=== PATIENT | male | born 1960 | race Caucasian/White ===

== ENCOUNTER 2019-02-28 10:00 | Emergency (ER) | payer OTHER, SELFPAY ==
[2019-02-28 10:03] VITALS: BP 139/75; PULSE 68; RESP 18; TEMP 36.3; O2SAT 100
--- NOTE | 2019-02-28 10:46 | W.ED.GENAD ---
Discharge Plan Disposition Patient Disposition: HOME Condition: Fair Discharge Details Chief Complaint: Laceration Clinical Impression: Laceration of scalp Primary Care Provider: Jeri Figueroa ED Provider: Mable Colmenares Home Meds and New Rx's Prescriptions: Continued multivitamin [Once Daily] 1 EACH tablet 1 tab PO DAILY RF: 0 naproxen sodium 220 MG tablet 2 tab PO BID RF: 0 aspirin 81 MG tablet,chewable 81 mg PO DAILY RF: 0 albuterol sulfate [Proventil HFA] 6.7 GM HFA aerosol inhaler 2 puff Inhalation Q4H PRN Qty: 1 RF: 3 Discharge Instructions Instructions: Laceration (ED), Staple Care (ED) Additional Instructions: Keep wound clean and dry. Monitor area for signs of infection including redness, warmth, drainage, increased pain, fever/chills. If these or other new/worsening symptoms arise please seek care urgently once again. Please return in 10 days for staple removal. You may wash with running water and soap but do not soak or submerge as this will increase her risk of infection. Referrals: Jeri Figueroa, ENTRY LEVEL SOFTWARE ENGINEER [Primary Care Provider] - Medical Decision Making Patient is a 58-year-old male presents today with chief complaint of scalp laceration. 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 Reports that he had bent over to pick something up off the floor and stood up into [employer]'s. Tetanus is 10 years, will update this today. He denies any headache or loss of consciousness. Suffered on 8 this laceration. Otherwise, exam is benign. He has a 3 cm curvilinear laceration on the top of his head. This has been cleansed by nursing staff. Patient I discussed treatment options. Plan to anesthetize, clean up further and close raudel. Patient discussed risk/benefits as well as expected procedural steps, he voiced understanding and wishes to proceed Procedure preformed using standard sterile technique as above. Patietn tolerated procedure well. Discussed wound care in depth. Discussed sxs of infection and when to seek care urgently once again. He will return in 10 days for staple removal. All questions and concerns were addressed, he is in agreement with this plan. HPI General Mode of arrival: ambulatory. Date/Time Provider Initiated Documentation: 02/28/19 10:04. Limitations to Documentation: no limitations. Information obtained by: patient and RN notes reviewed. History of Present Illness 58 year old M presents to the emergency department with the chief complaint of scalp laceration, described as mild, with intensity rated at 3. Quality is described as burning, and is localized to the head. Patient reports no radiation. Patient started experiencing this minute(s) and it has been constant. No relieving factors improve symptom(s), No exacerbating factors reported . Patient notes no other symptoms.; denies confusion, headaches and nausea/vomiting. Patient did receive the following treatments prior to arrival, none Related Data Home Medications Medication Instructions Recorded Confirmed multivitamin [Once Daily] 1 tab PO DAILY 12/22/12 02/28/19 naproxen sodium 2 tab PO BID 12/22/12 02/28/19 albuterol sulfate [Proventil HFA] 2 puff INHALATION Q4H PRN #1 puff 04/25/17 02/28/19 aspirin 81 mg PO DAILY tab-cap 04/25/17 02/28/19 Allergies Allergy/AdvReac Type Severity Reaction Status Date / Time environmental Allergy Intermediate rhinitis, Uncoded 02/28/19 10:23 itchy eyes General Stated Complaint: Laceration ANA: 4 Review of Systems Constitutional Reports as per HPI, Denies chills, Denies fatigue, Denies fever(s), Denies headache(s) and Denies poor appetite ENT Denies headache(s) Cardiovascular Denies chest pain Respiratory Denies cough Gastrointestinal Denies nausea and Denies vomiting Musculoskeletal Reports as per HPI Integumentary/Breasts Reports as per HPI Neurologic Reports as per HPI, Denies headache(s), Denies sensory deficit and Denies paresthesias Endocrine Denies fatigue [facility] Medical History Left upper body smaller than right, unknown etiology Pectus excavatum Surgical History Microdiscectomy, 1987, lumbar (L4-L5) Multiple joint injections (knees & shoulders), Abdon R Shoulder, rotator cuff repair, date? (12/28/00) Family History Mother Personal history of malignant neoplasm Father Personal history of malignant neoplasm Heart disease Mental disorder Brother Diabetes Mental disorder Social History Smoking/Tobacco Use Status: Former Tobacco Use Alcohol Intake: never Drug use: Never Do you feel safe in your relationship?: Yes Exam Const General: cooperative, healthy appearing, comfortable, no acute distress and well developed Nutritional Appearance: average body habitus and well nourished Orientation: alert and awake [facility] Head: no palpable skull fracture, no Soto's sign, no contusions, no hematomas, laceration (3cm curvilinear laceration top of had), no occipital foramen tenderness, no palpable skull fracture, no raccoon eyes and scalp tenderness Resp Effort & Inspection: normal respiratory effort, able to speak in complete sentences and no respiratory distress Cardio Rate: regular rate Rhythm: regular rhythm Skin Trauma: laceration (as above, not actively bleeding, galea intact) Neuro General: alert and awake Cognition: normal cognition Speech: speech normal Gait: normal gait Sensory Exam: no sensory deficits noted Psych Appearance: grossly normal and well kempt Mental Status: mental status grossly normal Speech and Movement: speech and movement normal Course Vital Signs Temperature 36.3 C L 02/28/19 10:03 Pulse 68 02/28/19 10:03 Respiratory Rate 18 02/28/19 10:03 Blood Pressure 139/75 02/28/19 10:03 Pulse Oximetry 100 02/28/19 10:03 Temperature 36.3 C L 02/28/19 10:03 Temperature Source Skin 02/28/19 10:03 Pulse 68 02/28/19 10:03 Respiratory Rate 18 02/28/19 10:03 Respiratory Effort 02/28/19 10:25 Blood Pressure 139/75 02/28/19 10:03 Pulse Oximetry 100 02/28/19 10:03 Oxygen Delivery Method Room Air 02/28/19 10:03 Oxygen Flow Rate 0 02/28/19 10:03 Pain Level 5 02/28/19 10:20 Procedures Laceration Laceration 1: Site: scalp Side (If applicable): left Size (cm): 3 Description: stellate Depth: simple, single layer Local Anesthetic: Lidocaine 1% and with Epi Amount of anesthesia used (mL): 4 Pre-repair: wound explored, irrigated extensively and deep structures intact Skin layer closed with: other (raudel) Number of sutures: 3
--- NOTE | 2019-02-28 10:52 | ED.GENADUL_ITS ---
Discharge Plan Disposition Patient Disposition: HOME Condition: Fair Discharge Details Chief Complaint: Laceration Clinical Impression: Laceration of scalp Primary Care Provider: Jeri Figueroa ED Provider: Mable Colmenares Home Meds and New Rx's Prescriptions: Continued multivitamin [Once Daily] 1 EACH tablet 1 tab PO DAILY RF: 0 naproxen sodium 220 MG tablet 2 tab PO BID RF: 0 aspirin 81 MG tablet,chewable 81 mg PO DAILY RF: 0 albuterol sulfate [Proventil HFA] 6.7 GM HFA aerosol inhaler 2 puff Inhalation Q4H PRN Qty: 1 RF: 3 Discharge Instructions Instructions: Laceration (ED), Staple Care (ED) Additional Instructions: Keep wound clean and dry. Monitor area for signs of infection including redness, warmth, drainage, increased pain, fever/chills. If these or other new/worsening symptoms arise please seek care urgently once again. Please r eturn in 10 days for staple removal. You may wash with running water and soap but do not soak or submerge as this will increase her risk of infection. Referrals: Jeri Figueroa, HOUSEHOLD APPLIANCES SERVICE TECHNICIAN [Primary Care Provider] - Medical Decision Making Patient is a 58-year-old male presents today with chief complaint of scalp laceration. 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 Reports that he had bent over to pick something up off the floor and stood up into [employer]. Tetanus is 10 years, will update this today. He denies any headache or loss of consciousness. Suffered on 8 this laceration. Otherwise, exam is benign. He has a 3 cm curvilinear laceration on the top of his head. This has been cleansed by nursing staff. Patient I discussed treatment options. Plan to anesthetize, clean up further and close raudel. Patient discussed risk/benefits as well as expected procedural steps, he voiced understanding and wishes to proceed Procedure preformed using standard sterile technique as above. Patietn tolerated procedure well. Discussed wound care in depth. Discussed sxs of infection and when to seek care urgently once again. He will return in 10 days for staple removal. All questions and concerns were addressed, he is in agreement with this plan. HPI General Mode of arrival: ambulatory . Date/Time Provider Initiated Documentation: 02/28/19 10:04 . Limitations to Documentation: no limitations . Information obtained by: patient and RN notes reviewed . History of Present Illness 58 year old M presents to the emergency department with the chief complaint of scalp laceration, described as mild, with intensity rated at 3. Quality is described as burning, and is localized to the head. Patient reports no radiation. Patient started experiencing this minute(s) and it has been constant. No relieving factors improve symptom(s), No exacerbating factors reported . Patient notes no other symptoms.; denies confusion, headaches and nausea/vomiting. Patient did receive the following treatments prior to arrival, none Related Data Home Medications Medication Instructions Recorded Confirmed multivitamin [Once Daily] 1 tab PO DAILY 12/22/12 02/28/19 naproxen sodium 2 tab PO BID 12/22/12 02/28/19 albuterol sulfate [Proventil HFA] 2 puff INHALATION Q4H PRN #1 puff 04/25/17 02/28/19 aspirin 81 mg PO DAILY tab-cap 04/25/17 02/28/19 Allergies Allergy/AdvReac Type Severity Reaction Status Date / Time environmental Allergy Intermediate rhinitis, Uncoded 02/28/19 10:23 itchy eyes General Stated Complaint: Laceration ANA: 4 Review of Systems Constitutional Reports as per HPI, Denies chills, Denies fatigue, Denies fever(s), Denies headache(s) and Denies poor appetite ENT Denies headache(s) Cardiovascular Denies chest pain Respiratory Denies cough Gastrointestinal Denies nausea and Denies vomiting Musculoskeletal Reports as per HPI Integumentary/Breasts Reports as per HPI Neurologic Reports as per HPI, Denies headache(s), Denies sensory deficit and Denies paresthesias Endocrine Denies fatigue [facility] Medical History Left upper body smaller than right, unknown etiology Pectus excavatum Surgical History Microdiscectomy, 1987, lumbar (L4-L5) Multiple joint injections (knees & shoulders), Abdon R Shoulder, rotator cuff repair, date? (12/28/00) Family History Mother Personal history of malignant neoplasm Father Personal history of malignant neoplasm Heart disease Mental disorder Brother Diabetes Mental disorder Social History (Reviewed 02/28/19 @ 10:50 by FLORES Majano Smoking/Tobacco Use Status: Former Tobacco Use Alcohol Intake: never Drug use: Never Do you feel safe in your relationship?: Yes Exam Const General: cooperative, healthy appearing, comfortable, no acute distress and well developed Nutritional Appearance: average body habitus and well nourished Orientation: alert and awake [facility] Head: no palpable skull fracture, no Soto's sign, no contusions, no hematomas, laceration (3cm curvilinear laceration top of had), no occipital foramen tenderness, no palpable skull fracture, no raccoon eyes and scalp tenderness Resp Effort & Inspection: normal respiratory effort, able to speak in complete sentences and no respiratory distress Cardio Rate: regular rate Rhythm: regular rhythm Skin Trauma: laceration (as above, not actively bleeding, galea intact) Neuro General: alert and awake Cognition: normal cognition Speech: speech normal Gait: normal gait Sensory Exam: no sensory deficits noted Psych Appearance: grossly normal and well kempt Mental Status: mental status grossly normal Speech and Movement: speech and movement normal Course Vital Signs Temperature 36.3 C L 02/28/19 10:03 Pulse 68 02/28/19 10:03 Respiratory Rate 18 02/28/19 10:03 Blood Pressure 139/75 02/28/19 10:03 Pulse Oximetry 100 02/28/19 10:03 Temperature 36.3 C L 02/28/19 10:03 Temperature Source Skin 02/28/19 10:03 Pulse 68 02/28/19 10:03 Respiratory Rate 18 02/28/19 10:03 Respiratory Effort 02/28/19 10:25 Blood Pressure 139/75 02/28/19 10:03 Pulse Oximetry 100 02/28/19 10:03 Oxygen Delivery Method Room Air 02/28/19 10:03 Oxygen Flow Rate 0 02/28/19 10:03 Pain Level 5 02/28/19 10:20 Procedures Laceration Laceration 1: Site: scalp Side (If applicable): left Size (cm): 3 Description: stellate Depth: simple, single layer Local Anesthetic: Lidocaine 1% and with Epi Amount of anesthesia used (mL): 4 Pre-repair: wound explored, irrigated extensively and deep structures intact Skin layer closed with: other (raudel) Number of sutures: 3
== END 2019-02-28 11:35 | disposition home or self-care (01) ==
PROVIDERS: Emergency Provider Physician Assistant; PCP Nurse Practitioner
DX: S01.01XA Laceration without foreign body of scalp, initial encounter (principal); W45.8XXA Other foreign body or object entering through skin, initial encounter
CPT/HCPCS: 12002; 90471

== ENCOUNTER 2019-03-12 09:18 | Emergency (ER) | payer SELFPAY ==
[2019-03-12 09:24] VITALS: BP 124/70; PULSE 82; RESP 14; TEMP 36.7; O2SAT 97
--- NOTE | 2019-03-12 09:48 | W.ED.GENAD ---
Discharge Plan Disposition Patient Disposition: HOME Condition: Stable Discharge Details Chief Complaint: SutureRem Clinical Impression: Encounter for removal of raudel Primary Care Provider: Jeri Figueroa ED Provider: Delores Loya Home Meds and New Rx's Prescriptions: Continued multivitamin [Once Daily] 1 EACH tablet 1 tab PO DAILY RF: 0 naproxen sodium 220 MG tablet 2 tab PO BID RF: 0 aspirin 81 MG tablet,chewable 81 mg PO DAILY RF: 0 albuterol sulfate [Proventil HFA] 6.7 GM HFA aerosol inhaler 2 puff Inhalation Q4H PRN Qty: 1 RF: 3 Discharge Instructions Additional Instructions: Please return immediately to the emergency department if you develop any new or worsening symptoms, including but not limited to fever, drainage or redness around the laceration, vomiting, or if you become otherwise concerned. It is extremely important that you call as soon as possible to make an appointment to be seen in follow-up this visit by your primary care doctor. Referrals: Jeri Figueroa, DANITA [Primary Care Provider] - Discharge Data Discharge Date/Time-TO BE ENTERED AT DEPARTURE: 03/12/19 10:31 Medical Decision Making Dion is a 58-year-old man with a history of asthma who presented to the emergency department for staple removal after being seen here 12 days for scalp laceration sustained from taxidermied animal specimen, no complaints. On exam patient is very well and nontoxic appearing. Laceration appears to be healing very well, [address] [place] removed without complication. No concern for acute emergent life-threatening process at this time. I had a lengthy discussion with patient regarding return to emergency department precautions, importance of outpatient follow-up, home care. Patient verbalized understanding the plan and was amenable. All questions were answered. Medical Records Medical records reviewed: Yes I reviewed the patient's medical records. HPI General Mode of arrival: ambulatory. Date/Time Provider Initiated Documentation: 03/12/19 09:48. Limitations to Documentation: no limitations. Information obtained by: patient, RN notes reviewed and old records reviewed. HPI Narrative: Steven Ledbetter is a 58-year-old man with history of asthma presenting to the emergency room department for staple removal after being seen here 02/28 for laceration to his scalp. Patient reports that since laceration was repaired with raudel, he has had no further issues. He denies any pain, redness, drainage, fevers, vomiting. Feels very well and in his usual state of health. He reports that he is here for staple removal only. Related Data Home Medications Medication Instructions Recorded Confirmed multivitamin [Once Daily] 1 tab PO DAILY 12/22/12 02/28/19 naproxen sodium 2 tab PO BID 12/22/12 02/28/19 albuterol sulfate [Proventil HFA] 2 puff INHALATION Q4H PRN #1 puff 04/25/17 02/28/19 aspirin 81 mg PO DAILY tab-cap 04/25/17 02/28/19 Allergies Allergy/AdvReac Type Severity Reaction Status Date / Time environmental Allergy Intermediate rhinitis, Uncoded 02/28/19 10:23 itchy eyes General Stated Complaint: SutureRem ANA: 4 Review of Systems Review of Systems Constitutional: denies fevers Eyes: denies eye pain ENT: denies facial pain, dental pain, sore throat Cardiovascular: denies chest pain Respiratory: denies SOB, cough GI: denies abdominal pain, vomiting : denies flank pain MSK: denies back pain, neck pain, arthralgias, myalgias Neuro: denies headaches PFSH Medical History Left upper body smaller than right, unknown etiology Pectus excavatum Family History Mother Personal history of malignant neoplasm Father Personal history of malignant neoplasm Heart disease Mental disorder Brother Diabetes Mental disorder Social History Smoking/Tobacco Use Status: Former Tobacco Use Alcohol Intake: never Drug use: Never Do you feel safe in your relationship?: Yes Exam Narrative Exam Narrative: Constitutional: well and [id number], pleasant, conversing normally HENT: head atraumatic/normocephalic, [address] over healing laceration left parietal scalp near midline, no drainage, no redness, no dehiscence, mucous membranes moist Eyes: conjunctiva normal, sclera normal, pupils 3mm b/l Neck: no stridor, normal ROM, trachea midline Resp: normal work of breathing Cardio: normal rate, normal rhythm Skin: warm, dry, normal color, no rash Neuro: alert, not altered, grossly non-focal, normal tone Ext: Moving all extremities equally Psych: normal mood, normal affect, normal behavior Course Vital Signs Temperature 36.7 C 03/12/19 09:24 Pulse Oximetry 97 03/12/19 09:24 Temperature 36.7 C 03/12/19 09:24 Temperature Source Temporal Artery Scan 03/12/19 09:24 Respiratory Effort Non-Labored 03/12/19 09:26 Blood Pressure Position Sitting 03/12/19 09:24 Pulse Oximetry 97 03/12/19 09:24 Oxygen Delivery Method Room Air 03/12/19 09:24 Oxygen Flow Rate 0 03/12/19 09:24
--- NOTE | 2019-03-12 10:13 | ED.GENADUL_ITS ---
Discharge Plan Disposition Patient Disposition: HOME Condition: Stable Discharge Details Chief Complaint: SutureRem Clinical Impression: Encounter for removal of raudel Primary Care Provider: Jeri Figueroa ED Provider: Delores Loya Home Meds and New Rx's Prescriptions: Continued multivitamin [Once Daily] 1 EACH tablet 1 tab PO DAILY RF: 0 naproxen sodium 220 MG tablet 2 tab PO BID RF: 0 aspirin 81 MG tablet,chewable 81 mg PO DAILY RF: 0 albuterol sulfate [Proventil HFA] 6.7 GM HFA aerosol inhaler 2 puff Inhalation Q4H PRN Qty: 1 RF: 3 Discharge Instructions Additional Instructions: Please return immediately to the emergency department if you develop any new or worsening symptoms, including but not limited to fever, drainage or redness around the laceration, vomiting, or if you become otherwise concerned. It is extremely important that you call as soon as possible to make an appointment to be seen in follow-up this visit by your primary care doctor. Referrals: Jeri Figueroa, DANITA [Primary Care Provider] - Discharge Data Discharge Date/Time-TO BE ENTERED AT DEPARTURE: 03/12/19 10:31 Medical Decision Making Dion is a 58-year-old man with a history of asthma who presented to the emergency department for staple removal after being seen here 12 days for scalp laceration sustained from taxidermied animal specimen, no complaints. On exam patient is very well and nontoxic appearing. Laceration appears to be healing very well, [address] [place] removed without complication. No concern for acute emergent life-threatening process at this time. I had a lengthy discussion with patient regarding return to emergency department precautions, importance of outpatient follow-up, home care. Patient verbalized understanding the plan and was amenable. All questions were answered. Medical Records Medical records reviewed: Yes I reviewed the patient's medical records. HPI General Mode of arrival: ambulatory . Date/Time Provider Initiated Documentation: 03/12/19 09:48 . Limitations to Documentation: no limitations . Information obtained by: patient, RN notes reviewed and old records reviewed . HPI Narrative: Steven Ledbetter is a 58-year-old man with history of asthma presenting to the emergency room department for staple removal after being seen here 02/28 for laceration to his scalp. Patient reports that since laceration was repaired with raudel, he has had no further issues. He denies any pain, redness, drainage, fevers, vomiting. Feels very well and in his usual state of health. He reports that he is here for staple removal only. Related Data Home Medications Medication Instructions Recorded Confirmed multivitamin [Once Daily] 1 tab PO DAILY 12/22/12 02/28/19 naproxen sodium 2 tab PO BID 12/22/12 02/28/19 albuterol sulfate [Proventil HFA] 2 puff INHALATION Q4H PRN #1 puff 04/25/17 02/28/19 aspirin 81 mg PO DAILY tab-cap 04/25/17 02/28/19 Allergies Allergy/AdvReac Type Severity Reaction Status Date / Time environmental Allergy Intermediate rhinitis, Uncoded 02/28/19 10:23 itchy eyes General Stated Complaint: SutureRem ANA: 4 Review of Systems Review of Systems Constitutional: denies fevers Eyes: denies eye pain ENT: denies facial pain, dental pain, sore throat Cardiovascular: denies chest pain Respiratory: denies SOB, cough GI: denies abdominal pain, vomiting : denies flank pain MSK: denies back pain, neck pain, arthralgias, myalgias Neuro: denies headaches PFSH Medical History Left upper body smaller than right, unknown etiology Pectus excavatum Family History Mother Personal history of malignant neoplasm Father Personal history of malignant neoplasm Heart disease Mental disorder Brother Diabetes Mental disorder Social History Smoking/Tobacco Use Status: Former Tobacco Use Alcohol Intake: never Drug use: Never Do you feel safe in your relationship?: Yes Exam Narrative Exam Narrative: Constitutional: well and [id number], pleasant, conversing normally HENT: head atraumatic/normocephalic, [address] over healing laceration left parietal scalp near midline, no drainage, no redness, no dehiscence, mucous membranes moist Eyes: conjunctiva normal, sclera normal, pupils 3mm b/l Neck: no stridor, normal ROM, trachea midline Resp: normal work of breathing Cardio: normal rate, normal rhythm Skin: warm, dry, normal color, no rash Neuro: alert, not altered, grossly non-focal, normal tone Ext: Moving all extremities equally Psych: normal mood, normal affect, normal behavior Course Vital Signs Temperature 36.7 C 03/12/19 09:24 Pulse Oximetry 97 03/12/19 09:24 Temperature 36.7 C 03/12/19 09:24 Temperature Source Temporal Artery Scan 03/12/19 09:24 Respiratory Effort Non-Labored 03/12/19 09:26 Blood Pressure Position Sitting 03/12/19 09:24 Pulse Oximetry 97 03/12/19 09:24 Oxygen Delivery Method Room Air 03/12/19 09:24 Oxygen Flow Rate 0 03/12/19 09:24
--- NOTE | 2019-03-12 10:14 | NUR.NOTE ---
removed sutures Nursing Note:
== END 2019-03-12 10:31 | disposition home or self-care (01) ==
PROVIDERS: Emergency Provider Student in an Organized Health Care Education/Training Program; PCP Nurse Practitioner
DX: S01.01XD Laceration without foreign body of scalp, subsequent encounter (principal); X58.XXXD Exposure to other specified factors, subsequent encounter; Z48.02 Encounter for removal of sutures

== ENCOUNTER 2024-10-26 13:43 | Outpatient (CLI) | payer MEDICARE, SELFPAY ==
[2024-10-26 10:56] LABS: HCT 45.1 % (40.0-50.0); MCH 29.8 pg (27.0-33.0); MCHC 33.3 % (32.0-36.0); MCV 90 fL (80-95); MPV 9.8 fL (8.0-11.0); Platelet Count 145 10^3/uL (130-400); RBC 5.03 10^6/uL (4.36-5.78); RDW 14.2 % (11.8-14.1); RDW-SD 46.8 fL; WBC 8.55 10^3/uL (4.4-10.8)
[2024-10-26 11:08] LABS: Anion Gap 7.7 mmol/L (3-11); BUN 22 mg/dL (7-18); CO2 30.3 mmol/L (21.0-32.0); Calcium 9.9 mg/dL (8.5-10.1); Chloride 101 mmol/L (98-107); Estimated GFR 84.57 (mL/min/1.73m2); Glucose 128 mg/dL (74-106); Potassium 3.9 mmol/L (3.5-5.1); Sodium 139 mmol/L (136-145)
[2024-10-26 11:23] LABS: NT-proBNP 65 pg/mL (<300)
== END 2024-10-26 13:44 | disposition home or self-care (01) ==
LOC: LBO 13:49
PROVIDERS: PCP Nurse Practitioner; Visit Provider Nurse Practitioner Family
DX: R06.02 Shortness of breath (principal); R05.9 Cough, unspecified
CPT/HCPCS: 36415; 80048; 85027; 83880

== ENCOUNTER 2024-10-26 14:09 | Outpatient (CLI) | payer MEDICARE, SELFPAY ==
--- NOTE | 2024-10-26 10:44 | DI.RAD_ITS ---
Exam(s) XR CHEST 2V PA LATERAL EXAM: XR CHEST 2V PA LATERAL CLINICAL HISTORY: rule out pneumonia, shortness of breath, R06.02 TECHNIQUE: 2D digital imaging was performed. Two views. COMPARISON: CR LEFT RIBS TO INCLUDE CXR from 01/31/2013 FINDINGS: HEART: Normal size. Aorta: Mildly tortuous peer PULMONARY VASCULATURE: Normal. MEDIASTINUM: Unremarkable. LUNGS: Patchy right upper lobe infiltrate. Increased density also seen at the right lower lobe. PLEURAL SPACE: No pleural effusion or pneumothorax. BONE:Unremarkable degenerative changes in the thoracic spine. No compression fractures. SOFT TISSUES: Unremarkable. IMPRESSION: The right upper and lower lobe pneumonia. DATA REPOSITORY: RADIATION DOSE DELIVERED:
== END 2024-10-26 14:29 ==
LOC: DI 14:09
PROVIDERS: PCP Nurse Practitioner; Visit Provider Nurse Practitioner Family
DX: R06.02 Shortness of breath (principal)
CPT/HCPCS: 71046